=== PATIENT | female | born 1985 | race Caucasian/White ===

== ENCOUNTER 2019-08-30 17:45 | Emergency (ER) | payer SELFPAY ==
[2019-08-30] MEDS ORDERED: LISINOPRIL 10 MG TABLET PO ONE (19:11)
[2019-08-30] MEDS ORDERED: HYDROCHLOROTHIAZIDE 12.5 MG TABLET PO ONE (19:12)
--- NOTE | 2019-08-30 19:14 | ER Document Report ---
ED Medical Screen (RME) - General Chief Complaint: Suicidal Ideation Stated Complaint: POSSIBLE SI Time Seen by Provider: 08/30/19 19:00 Mode of Arrival: Ambulatory Information source: Patient Notes: Patient presents stating that she wants to detox from methamphetamine and heroin. Patient states she last used both today. Patient reports suicidal ideation but states that she is it is against her protestant. Patient states that she feels as though she is at the breaking point. Patient reports multiple stressors including lack of a job and not be able to see her children. Patient reports previous inpatient treatment at [facility] [place] [facility], [facility]. Patient reports a history of hypertension and has been off of her medication recently. I have greeted and performed a rapid initial assessment of this patient. A comprehensive ED assessment and evaluation of the patient, analysis of test results and completion of the medical decision making process will be conducted by additional ED providers. Physical Exam - Vital signs Vitals: Temp Pulse Resp BP Pulse Ox 98.9 F 121 H 16 164/111 H 99 08/30/19 17:52 08/30/19 17:52 08/30/19 17:52 08/30/19 17:52 08/30/19 17:52 - Cardiovascular Rhythm: Tachycardia Heart sounds: S1 appreciated, S2 appreciated - Psychological Associated symptoms: Normal affect Course - Vital Signs Vital signs: Temp Pulse Resp BP Pulse Ox 98.9 F 121 H 16 164/111 H 99 08/30/19 17:52 08/30/19 17:52 08/30/19 17:52 08/30/19 17:52 08/30/19 17:52
--- NOTE | 2019-08-30 20:17 | PSYCHOLOGICAL NOTE ---
Psych Note - Psych Note Date seen by psych provider: 08/30/19 Time seen by psych provider: 18:20 - [facility] Collateral from [id number] Psych Note: From [id number] obtained collateral from [facility] worker Christi who brought patient to the ED today for suicidal ideation and detox. [facility] worker stated [place] and other detox facilities are full. She stated patient is here voluntarily, wants detox then 1-2 year recovery program ([facility] has about 7 releases so can reach out to recovery programs), and has active suicidal ideation because patient said "If I don't get in to some place today I will overdose on purpose I am over it." [facility] worker stated patient reported using methamphetamine and heroin via snorting and smoking currently, last use was today and in the past used IV. [facility] worker stated patient has a history of substance abuse and detox: alcohol and benzodiazepines in the past. [facility] worker stated patient has overdosed by accident three times before. [facility] stated no outpatient provider in place, patient does not have transportation and reportedly that is the reason why no outpatient services otherwise patient told [facility] "I would go if I had a way to get there," and she resides with a boyfriend who does heroin.
[2019-08-30 20:51] LABS: ABSOLUTE LYMPHOCYTES (AUTO) 2.8 10^3/uL (0.5-4.7); ABSOLUTE MONOCYTES (AUTO) 0.6 10^3/uL (0.1-1.4); ABSOLUTE NEUT (AUTO) 9.5 10^3/uL (1.7-8.2); BASOPHILS % (AUTO) 0.4 % (0-2); EOSINOPHILS % (AUTO) 0.2 % (0-6); HEMATOCRIT 46.4 % (36.0-47.0); HEMOGLOBIN 15.8 g/dL (12.0-15.5); LYMPHOCYTES % (AUTO) 21.3 % (13-45); MEAN CORPUSCULAR HEMOGLOBIN 30.5 pg (27.0-33.4); MEAN CORPUSCULAR HGB CONC 34.1 g/dL (32.0-36.0); MEAN CORPUSCULAR VOLUME 90 fl (80-97); MONOCYTES % (AUTO) 4.3 % (3-13); PLATELET COUNT 385 10^3/uL (150-450); RED BLOOD COUNT 5.18 10^6/uL (3.72-5.28); SEGMENTED NEUTROPHILS % (AUTO) 73.8 % (42-78); TOTAL CELLS COUNTED % (AUTO) 100 %; WHITE BLOOD COUNT 12.9 10^3/uL (4.0-10.5)
[2019-08-30 21:01] LABS: APPEARANCE,URINE SLIGHTLY-CLOUDY; BILIRUBIN,URINE NEGATIVE (NEGATIVE); COLOR,URINE YELLOW; GLUCOSE, URINE NEGATIVE (NEGATIVE); KETONES,URINE TRACE mg/dL (NEGATIVE); LEUKOCYTE ESTERASE,URINE NEGATIVE (NEGATIVE); NITRITE,URINE NEGATIVE (NEGATIVE); PROTEIN,URINE 30 mg/dL (NEGATIVE); URINE SPECIFIC GRAVITY 1.026
[2019-08-30 21:08] LABS: ALBUMIN 4.9 g/dL (3.5-5.0); ALKALINE PHOSPHATASE 129 U/L (38-126); ANION GAP 10 (5-19); ASPARTATE AMINO TRANSFERASE 22 U/L (14-36); BILIRUBIN,TOTAL 0.7 mg/dL (0.2-1.3); BLOOD UREA NITROGEN 10 mg/dL (7-20); CALCIUM 10.4 mg/dL (8.4-10.2); CARBON DIOXIDE 28 mmol/L (22-30); CHLORIDE 102 mmol/L (98-107); GLUCOSE 99 mg/dL (75-110); POTASSIUM 4.2 mmol/L (3.6-5.0); TOTAL PROTEIN 8.4 g/dL (6.3-8.2)
[2019-08-30 21:12] LABS: ACETAMINOPHEN < 10 ug/mL (10-30); ALCOHOL < 10 mg/dL (NONE DETECTED); SALICYLATE < 1.0 mg/dL (2.0-20.0)
[2019-08-30 21:32] LABS: URINE BARBITURATES SCREEN NEGATIVE; URINE BENZODIAZEPINES SCREEN NEGATIVE; URINE COCAINE SCREEN NEGATIVE; URINE METHADONE SCREEN NEGATIVE; URINE PHENCYCLIDINE SCREEN NEGATIVE
[2019-08-30 21:43] LABS: URINE MARIJUANA (THC) SCREEN UNCONFIRMED POSITIVE
[2019-08-30] MEDS ORDERED: LISINOPRIL 10 MG TABLET ONE (22:05)
--- NOTE | 2019-08-30 23:01 | ER Document Report ---
ED Psych Disorder / Suicide - General Mode of Arrival: Ambulatory Information source: Patient - HPI Patient complains to provider of: Suicidal ideation, Other - Drug abuse heroin and meth Onset: Other - States she was using meth and heroin every day and she does not does not want to continue living in this manner Quality of pain: No pain Severity: None Pain Level: Denies Situational problems related to: Other - States children's father will not let her see him she does not have a job does not have a home Suicide Attempt Method: Other - states she uses meth and heroin every day and if she has to continue in this life she is going to overdose Similar symptoms previously: Yes Recently seen / treated by doctor: No <ESTEFANY CHAMORRO - Last Filed: 08/30/19 22:56> <OMA MENDIOLA - Last Filed: 08/31/19 14:33> - General Mode of Arrival: Ambulatory Information source: Patient <ZACKARY JOSHI - Last Filed: 08/31/19 18:00> - General Chief Complaint: Medical Clearance Stated Complaint: POSSIBLE SI Time Seen by Provider: 08/30/19 19:00 Primary Care Provider: [facility] [Outside] - Follow up as needed [facility] [Outside] - Follow up as needed Notes: 33-year-old female presented to ED for complaint of needing detox from meth amphetamines and heroin. She states she is at the end of her rope. She states that she does not get into some placed for detox she will overdose and kill herself. She states she does not really want to kill herself but she just can not keep going to the way it is. She states that her kids father will not let her see the kids she has no friends she has nobody to help her and she just keeps taking heroin and meth. She states she used 0.2 on a scale of heroin today and a gram of meth. She states she has no job she has no home she cannot see her children she just does not see any reason to continue in this life. She states she does have a history of PTSD depression anxiety migraines degenerative disc disease and a partial hysterectomy. She states she does smoke 1/2 pack a day but is not drank in about 2 years she is an alcoholic so she has not had a drink of alcohol. (ESTEFANY CHAMORRO) - Related Data Allergies/Adverse Reactions: metoclopramide [From Reglan] Allergy (Verified 08/30/19 22:12) Past Medical History - General Information source: Patient - Social History Smoking Status: Current Every Day Smoker Cigarette use (# per day): Yes - Half pack a day Chew tobacco use (# tins/day): No Smoking Education Provided: Yes - 4 minutes Frequency of alcohol use: None - States she is a former alcoholic so she does not drink Drug Abuse: Heroin, Methamphetamine Lives with: Alone Family History: Reviewed & Not Pertinent Patient has suicidal ideation: Yes Patient has homicidal ideation: No - Past Medical History Cardiac Medical History: Reports: Hx Hypertension Pulmonary Medical History: Reports: None EENT Medical History: Reports: None Neurological Medical History: Reports: Hx Migraine Endocrine Medical History: Reports: None Renal/ Medical History: Reports: None Malignancy Medical History: Reports: None GI Medical History: Reports: None Musculoskeletal Medical History: Reports Hx Musculoskeletal Deformity, Reports Hx Musculoskeletal Trauma Skin Medical History: Reports None Psychiatric Medical History: Reports: Hx Anxiety, Hx Depression, Hx Post Traumatic Stress Disorder Past Surgical History: Reports: Hx Section, Hx Cholecystectomy, Hx Hysterectomy <ESTEFANY CHAMORRO - Last Filed: 08/30/19 22:56> - General Information source: Patient - Social History Smoking Status: Unknown if Ever Smoked Family History: Reviewed & Not Pertinent <ZACKARY JOSHI - Last Filed: 08/31/19 18:00> Review of Systems - Review of Systems Cardiovascular: Palpitations Neurological/Psychological: Depression, Anxiety, Suicidal ideation -: Yes All other systems reviewed and negative <ESTEFANY CHAMORRO - Last Filed: 08/30/19 22:56> Physical Exam - Vital signs Interpretation: Hypertensive, Tachycardic - General General appearance: Appears well, Alert - HEENT Head: Normocephalic, Atraumatic Eyes: Normal Pupils: PERRL - Respiratory Respiratory status: No respiratory distress Chest status: Nontender Breath sounds: Normal Chest palpation: Normal - Cardiovascular Rhythm: Regular Heart sounds: Normal auscultation Murmur: No - Abdominal Inspection: Normal Distension: No distension Bowel sounds: Normal Tenderness: Nontender Organomegaly: No organomegaly - Back Back: Normal, Nontender - Extremities General upper extremity: Normal inspection, Nontender, Normal color, Normal ROM, Normal temperature General lower extremity: Normal inspection, Nontender, Normal color, Normal ROM, Normal temperature, Normal weight bearing. No: Marcus's sign - Neurological Neuro grossly intact: Yes Cognition: Normal Orientation: AAOx4 [place] Coma Scale Eye Opening: Spontaneous [place] Coma Scale Verbal: Oriented [place] Coma Scale Motor: Obeys Commands [place] Coma Scale Total: 15 Speech: Normal Motor strength normal: LUE, RUE, LLE, RLE Sensory: Normal - Psychological Associated symptoms: Anxious, Depressed - Skin Skin Temperature: Warm Skin Moisture: Dry Skin Color: Normal <ESTEFANY CHAMORRO - Last Filed: 08/30/19 22:56> - Vital signs Vitals: Temp Pulse Resp BP Pulse Ox 98.9 F 121 H 16 164/111 H 99 08/30/19 17:52 08/30/19 17:52 08/30/19 17:52 08/30/19 17:52 08/30/19 17:52 Course - Laboratory Result Diagrams: 08/30/19 20:30 08/30/19 20:30 <ESTEFANY CHAMORRO - Last Filed: 08/30/19 22:56> - Laboratory Result Diagrams: 08/30/19 20:30 08/30/19 20:30 <OMA MENDIOLA - Last Filed: 08/31/19 14:33> - Laboratory Result Diagrams: 08/30/19 20:30 08/30/19 20:30 <ZACKARY JOSHI - Last Filed: 08/31/19 18:00> - Vital Signs Vital signs: Temp Pulse Resp BP Pulse Ox 98.0 F 95 16 136/94 H 10 L 08/31/19 15:07 08/31/19 15:07 08/31/19 15:07 08/31/19 15:07 08/31/19 15:07 - Laboratory Laboratory results interpreted by me: 08/30/19 08/30/19 08/30/19 20:30 20:30 20:30 WBC 12.9 H Hgb 15.8 H Absolute Neuts (auto) 9.5 H Calcium 10.4 H Alkaline Phosphatase 129 H Total Protein 8.4 H Urine Protein 30 H Urine Ketones TRACE H Urine Urobilinogen 2.0 H Salicylates < 1.0 L Acetaminophen < 10 L Discharge <ESTEFANY CHAMORRO - Last Filed: 08/30/19 22:56> <OMA MENDIOLA - Last Filed: 08/31/19 14:33> <ZACKARY JOSHI - Last Filed: 08/31/19 18:00> - Discharge Clinical Impression: Polysubstance abuse, Opioid abuse, Methamphetamine abuse, Passive suicidal ideations Condition: Stable Disposition: HOME, SELF-CARE Additional Instructions: You have been evaluated by both medical and behavioral health teams polysubstance abuse (you reported heroin and methamphetamine, also positive for cannabis) and passive suicidal ideation. You have been deemed appropriate for discharge. While in the emergency department you received the following services/or had access to: Medical screening and assessment, nursing services, dietary services, pharmacological services, one-on-one counseling and/or psychotherapy, environmental services, and continuous observation by a patient health safety instructor. NARCOTIC / OPIOD ABUSE: Narcotics and opiods are pain-relieving drugs that are often abused. They are addicting. Narcotics cause euphoria, but it often takes increasing amounts to "feel good" and avoid withdrawal symptoms. Overdose of narcotics causes small pupils, coma, and decreased breathing. It's a common cause of . Purity of street narcotics is unpredictable. Injection of narcotics is risky for abscesses, endocarditis (heart infection), pneumonia, and AIDS. Withdrawal from narcotics causes goose bumps, watery mouth, sweating, nasal congestion, muscle aches, abdominal cramps, vomiting, and diarrhea. There's often restlessness and confusion. Treatment programs are available, but you must make the decision to quit. Medication (such as clonidine) can be prescribed to control the symptoms of withdrawal. AMPHETAMINE / METHAMPHETAMINE ABUSE: Amphetamines are addicting stimulants. Amphetamines overstimulate the nervous system and give a false feeling of power and mastery. These drugs may be obtained as prescription pills for weight loss, narcolepsy, or attention-deficit disorder. More often they're bought as an illegal street drug, methamphetamine (crank, crystal, speed). Using amphetamines repeatedly can lead to serious medical problems including malnutrition, severe depression, and paranoia. It can take increasing amounts to feel good. Eventually, there will be a "burn out." When you go off amphetamines there is a period of depression that may last for weeks or even months. High doses of amphetamines can cause seizures, confusion, hallucinations, delusions, high blood pressure, muscle damage, heart damage, or sudden . Many times these deadly complications occur even with "normal" doses. Injection of amphetamines is risky for developing abscesses, endocarditis (heart infection), pneumonia, and AIDS. Withdrawal from amphetamines often causes anxiety, depression, and drug cravings. Some users become paranoid and psychotic. There may be cramps, nausea, and vomiting. Many treatment programs are available, but you must make the decision to quit. Medication can be prescribed to control the symptoms of amphetamine toxicity (beta blockers or benzodiazepines). Withdrawal symptoms may require tranquilizers. DEPRESSION: Your evaluation reveals that you have mental depression. While symptoms may be vague, they often include disturbance of sleep, fatigue, loss of appetite, and general loss of interest in life. While depression may be a side effect of drugs, or a reaction to a major change in your life, many cases have no known cause. If depression is acute, and related to a major loss in your life, you can expect it to clear completely with time. If you have been depressed a long time, are prone to repeated bouts of depression or low mood, or have been thinking of suicide, get help. Depression can be treated with anti-depressant medication and counselling. Long-term depression will often take a few weeks to clear, even with appropriate medication. Follow-up care is important. SUICIDAL IDEATION: Suicidal ideation is a common medical term for thoughts about suicide, which may be as detailed as a formulated plan, without the suicidal act itself. Although most people who undergo suicidal ideation do not commit suicide, some go on to make suicide attempts. The range of suicidal ideation varies greatly from fleeting to detailed planning, role playing, and unsuccessful attempts. While thoughts about suicide are common, most people do not carry out serious actions to commit suicide. Based upon your evaluation and discussion with you, we do not believe you are currently at risk to act upon your thoughts of suicide. You have agreed to return to the Emergency Department, at any time, if you feel inclined to act upon your suicidal thoughts. FOLLOW-UP CARE: [facility] involved with [facility] treatment, they are actively looking for detoxification placement and the longterm (1-2 year) recovery options you informed them you were interested in. [facility] is full today but expecting discharges in the morning. You gave verbal consent to provide voluntary linkage and referral to [facility] so a referral packet was faxed. You were also provided with your lab work in case [facility] gets your placement elsewhere. [facility] will be following up with your later today. If you experience worsening or a significant change in your symptoms notify your physician immediately, utilize [facility] or return to the Emergency Department at any time for re-evaluation. Referrals: [facility] [Outside] - Follow up as needed [facility] [Outside] - Follow up as needed
[2019-08-30] MEDS ORDERED: ACETAMINOPHEN 325 MG TABLET PO ONE (23:43)
--- NOTE | 2019-08-31 01:06 | EKG REPORT ---
SEVERITY:- ABNORMAL ECG - SINUS TACHYCARDIA LEFT ATRIAL ABNORMALITY BORDERLINE PROLONGED QT INTERVAL : Confirmed by: Trang Guzmán MD 31-Aug-2019 01:04:41
[2019-08-31] MEDS ORDERED: ACETAMINOPHEN 325 MG TABLET PO ONE (12:28)
--- NOTE | 2019-08-31 14:24 | ER Document Report ---
Doctor's Note Notes: 08/31/19 14:23 Patient's vital signs and previous labs, diagnostic images reviewed. Reviewed mental health notes, nurse's notes and previous providers notes. VSS. Pt is in no distress at this time. Denies any SI or HI. General: A&Ox3. Answers questions appropriately. Heart: RRR Lungs: CTAB Psych: Flat affect A/P: Continue monitoring and rec's per MH. Normal diet discharge home with [facility]
[2019-08-31 15:08] VITALS: BP 136/94
--- NOTE | 2019-09-01 15:05 | PSYCHOLOGICAL NOTE ---
Psych Note - Psych Note Date seen by psych provider: 08/31/19 Time seen by psych provider: 12:17 - [id number] Psych Note: Patient is a 33 year old female who presented to the ED yesterday via [facility] due to desire for detox (snorting and smoking heroin and meth) and suicidal ideation. Collateral was obtained yesterday from [facility] worker Christi. Patient still in [facility] waiting for ED room when this clinician's shift ended last evening. She was held overnight by medical staff. At 1116 called Christi with [facility] to check in on their planning. She stated she was just getting ready to start phone calls to the 7 recovery places patient signed releases for. She said she would call [facility] and the [facility] to see about bed availability. At 1235 returned call saying both detox facilities still full and [facility] said likely discharged tomorrow morning. At 1412 Christi with [facility] made aware of plan to discharge, patient gave verbal consent to fax voluntary referral to [facility] which was done and she would have her lab work in case other facilities needed it. [facility] said she would check in with patient later today as she was on another crisis call. She stated the people patient resides with drive so though she says she doesn't have transportation she likely does. Patient stated "I don't have thoughts of suicidal ideation I just don't want to be here anymore." She commented on having "emotional and family problems." She stated "I have no support system it's just me." She identified "I would not hurt myself intentionally because of my baptism beliefs but am scared I will accidentally overdose (have done it before), I'd get someone else to do it before I did anything to kill myself intentionally." Patient denied previous suicide attempts. She confirmed she still wanted detox and then alf recovery. She stated "I just want a date I can go to start treatment that way I can prepare." She mentioned "I have 4 kids, if I don't fix myself I won't be here for them and I want to be." Patient complained of sleeping on neck wrong and that she would typically take Tylenol at home for it, medical staff notified. Patient gave verbal consent to provide linkage and referral to [facility] for Voluntary Detox referral. Faxed referral faxed. UDS was positive for Methamphetamine and Cannabis Clinical Presentation: Desire for Detox Polysubstance Use Methamphetamine Heroin Cannabis Impression/Plan: Patient is cleared from acute psychiatric services. She denied suicidal ideation and explained she is worries she will accidentally overdose. She talked about wanting to get better and be here for her 4 children. [facility] is actively involved with patient in trying to obtain detox and recovery placement. Patient gave verbal consent to fax voluntary referral packet to [facility] in case a bed becomes available in AM. Voluntary referral faxed to [facility]. Patient was provided her lab work in a yellow envelope. She was provided the substance abuse resource sheet (has [facility], [facility] and other detox contact information). Coordinated care with [facility] Barraza. Patient was able to obtain transportation. Consulted with Dr. Reardon regarding the management and care of patient. ED physician in agreement with recommendations.
== END 2019-08-31 15:07 | disposition home or self-care (01) ==
LOC: ER 17:45
DX: F11.10 Opioid abuse, uncomplicated (principal); F15.10 Other stimulant abuse, uncomplicated; R45.851 Suicidal ideations; F32.9 Major depressive disorder, single episode, unspecified; F41.9 Anxiety disorder, unspecified; R00.2 Palpitations; I10 Essential (primary) hypertension; Z59.0 Homelessness; Z63.79 Other stressful life events affecting family and household; F17.210 Nicotine dependence, cigarettes, uncomplicated; Z71.6 Tobacco abuse counseling
CPT/HCPCS: 36415; 80053; 80307; 81001; 84703; 85025; 93005; 93010; 99285; 99406